=== PATIENT | female | born 1965 | race Caucasian/White ===

== ENCOUNTER 2024-09-24 08:30 | Outpatient (RCR) | payer MEDICAID, SELFPAY ==
--- NOTE | 2024-09-05 10:06 | PT.OIERPT ---
PT OP Initial Eval Patient Information Outpatient Physical Therapy Treatment Date: 09/05/24 Visit Reasons: right wrist and left elbow pain Medical Diagnosis: Left Tennis Elbow Treatment Dx #1: Left Elbow Pain Start of Care: 09/05/24 Date of Onset: 1 year ago Smoking Status Smoking Status: Current every day smoker (yes) Cessation Counseling Provided: NIA was advised that quitting smoking is the single most important factor to protect the health of themselves and their family. Discussed the benefits of quitting smoking with patient. Encouraged patient to quit smoking and provided Cessation assistance materials and resources. Tobacco Use: Cigarette Years smoked: 30 Are you interested in quitting?: No Would you like additional Smoking Cessation Counseling?: No Initial Assessment Subjective: Pt is a 59 y/o female reports of chronic left elbow pain (11/06) ~ 1 year ago. No imaging has been done. Pt has limitation with gripping, lifting, chores, self care, cooking, cleaning, and performing recreational activities. Objective: Left Elbow AROM: all motions are WNL Left Elbow MMTs: grossly 4/5 Left Wrist AROM: all motions are WFL Left Wrist MMTs: grossly 4-/5 Manager Nicu Strength L: 60 lbs R: 65 lbs Special Test (+) cozen (+) cook Palpation: TTP extensor complex tendon Assessment: Pt demonstrate left elbow pain consistent with tennis elbow leading to difficulty with ADLs. Pt will benefit from physical therapy to increase mobility, strength, and work on flexibility Short Term and Correction Goals 1) Decrease left elbow pain to 2/10 in 6 wks to be able to perform chores 2) Increase left technical support specialist strength to 65 lbs in 6 wks to be able to perform recreational activities 3) Increase left wrist MMTs grossly to 4/5 in 6 wks to be able to perform lifting activities 4) Indep with HEP Treatment Plan 1) Manual Therapy 2) Therapeutic Activities 3) Therapeutic Exercises 4) Modalities (ice, heat) Frequency and Duration: 2 x wk for 6 wks Certification Dates: 09/05/24 to 12/05/24 Procedure Charges OP PT Eval Mod Complex 30 minutes: Yes
--- NOTE | 2024-09-14 09:03 | PT.ODAYNRPT ---
PT Outpatient Daily Note OP Daily Note Outpatient Physical Therapy Treatment Date: 09/14/24 Visit Reasons: right wrist and left elbow pain Subjective: Pt's elbow continues to hurt and painful with activities. Objective: Please see flow chart for list of ther ex performed Assessment: pain with exercises, however, able to complete instructed reps. Decrease extensor complex tension post STM Plan: Continue with PT Length of Time (minutes) of Treatment: 30 Minutes Procedure Charges Therapeutic Exercise 30 minutes: Yes
--- NOTE | 2024-09-24 12:57 | PT.ODAYNRPT ---
PT Outpatient Daily Note OP Daily Note Outpatient Physical Therapy Treatment Date: 09/24/24 Visit Reasons: right wrist and left elbow pain Subjective: Pt's wrist and elbow is better. Pt notice some mild swelling around the elbow. Objective: Please see flow chart for list of ther ex performed Assessment: tolerate exercises with minimal pain Plan: Continue with PT Length of Time (minutes) of Treatment: 30 Minutes Procedure Charges Therapeutic Exercise 30 minutes: Yes
== END 2024-09-26 23:59 | disposition home or self-care (01) ==
LOC: CPTX 08:30
DX: M25.522 Pain in left elbow (principal); G89.29 Other chronic pain; Z71.6 Tobacco abuse counseling; F17.210 Nicotine dependence, cigarettes, uncomplicated
CPT/HCPCS: 97110; 97162

== ENCOUNTER 2024-10-15 08:48 | Outpatient (RCR) | payer MEDICAID, SELFPAY ==
--- NOTE | 2024-10-15 09:54 | PT.ODAYNRPT ---
PT Outpatient Daily Note OP Daily Note Outpatient Physical Therapy Treatment Date: 10/15/24 Visit Reasons: right hand left elbow pain Subjective: Pt notice less intense elbow pain since starting physical therapy. Swelling around the elbow has still been persistent. Objective: Please see flow chart for list of ther ex performed Assessment: exhibit mild swelling around the lateral aspect of the elbow. Educated to ice elbow to help with edema. Pt demonstrate decrease tone in extensors musculatures post STM Plan: Continue with PT Length of Time (minutes) of Treatment: 30 Minutes Procedure Charges Therapeutic Exercise 30 minutes: Yes
--- NOTE | 2024-11-05 10:11 | PT.ODS1RPT ---
PT OP Progress/Discharge Note Date of Service: 11/05/24 Progress Note/DC Note Progress Note/Discharge Note: DC Note Patient Information Visit Reasons: right hand left elbow pain Service Discharge Date: 11/05/24 Status Assessment: Pt has been seen for 4 visits (eval + 3 visits) inconsistently. Pt last treated on 10/15/24 and has multiple no showed appts (09/11, 09/24, 10/25, and 11/05). At this time Pt will be d/c from care due to non-compliance per attendance policy. Pt did not meet set goals in therapy; thank you for your referrals
== END 2024-10-27 23:59 | disposition home or self-care (01) ==
LOC: CPTX 08:48
DX: M25.522 Pain in left elbow (principal); G89.29 Other chronic pain
CPT/HCPCS: 97110

== ENCOUNTER → 2025-05-15 | Outpatient (CLI) | payer MEDICAID, SELFPAY ==
--- NOTE | 2025-05-15 10:23 | XR_ITS ---
Examination: Hand, left 3 views Technique: Hand AP, oblique, lateral 3 views Date and time of exam: April, 1030 hours INDICATIONS: Left hand pain beginning 2 months ago. FINDINGS: Moderate osteoarthritis distal interphalangeal joints second through fifth digits and interphalangeal joint first digit Mild to moderate osteoarthritis first carpometacarpal joint No acute fractures No erosive arthritis Mild osteoarthritis metacarpal phalangeal joints second through fifth IMPRESSION: Osteoarthritis as above
== END | disposition home or self-care (01) ==
PROVIDERS: Referring Provider Nurse Practitioner Gerontology; Visit Provider Nurse Practitioner Gerontology
DX: M18.12 Unilateral primary osteoarthritis of first carpometacarpal joint, left hand (principal); M19.042 Primary osteoarthritis, left hand
CPT/HCPCS: 73130